=== PATIENT | female | born 1995 | race Caucasian/White ===

== ENCOUNTER 2018-03-06 06:18 | Emergency (ER) | payer OTHER ==
[2018-03-06 07:28] VITALS: BMI 24.5
--- NOTE | 2018-03-06 07:43 | PDOC ---
History of Present Illness - General History Source: Patient Exam Limitations: No Limitations - History of Present Illness Initial Comments: 03/06/18 07:53 The patient is a 22-year-old female, with no significant past medical history, who presents to the ED with one 1 day of diffuse abdominal pain, nausea, vomiting, and diarrhea. The patient states that she felt fine yesterday morning and developed her symptoms in the afternoon. She reports vomiting 2x yesterday and since then has been experiencing multiple episodes of loose, watery diarrhea. The patient has no appetite and is not able to hold down any solids or liquids. She denies any recent sick contacts. Patient is on control. The patient denies any fever or chills. She denies having any dysuria, frequency, urgency, or hesitancy. She denies any chest pain or shortness of breath. Allergies: NKA PCP: Dr. Starr Spain <Candi Kennedy - Last Filed: 03/06/18 16:51> <Kary Tidwell - Last Filed: 03/07/18 09:08> - General Chief Complaint: Pain Stated Complaint: abdominal pain Time Seen by Provider: 03/06/18 07:37 Past History <Candi Kennedy - Last Filed: 03/06/18 16:51> - Past Medical History COPD: No - Suicide/Smoking/Psychosocial Hx Smoking History: Never smoked Hx Alcohol Use: No Drug/Substance Use Hx: No <Kary Tidwell - Last Filed: 03/07/18 09:08> - Past Medical History Allergies/Adverse Reactions: Allergies Allergy/AdvReac Type Severity Reaction Status Date / Time No Known Allergies Allergy Verified 03/06/18 07:28 Home Medications: Ambulatory Orders Ondansetron [Zofran -] 4 mg PO TID PRN #21 tablet 03/06/18 Review of Systems - Review of Systems Able to Perform ROS?: Yes Comments:: 03/06/18 07:53 GENERAL/CONSTITUTIONAL: (+)loss of appetite. No fever or chills. No weakness. HEAD, EYES, EARS, NOSE AND THROAT: No change in vision. No ear pain or discharge. No sore throat. CARDIOVASCULAR: No chest pain or shortness of breath. RESPIRATORY: No cough, wheezing, or hemoptysis. GASTROINTESTINAL: (+)Abdominal pain, nausea, vomiting, diarrhea. No constipation. GENITOURINARY: No dysuria, frequency, or change in urination. MUSCULOSKELETAL: No joint or muscle swelling or pain. No neck or back pain. SKIN: No rash NEUROLOGIC: No headache, vertigo, loss of consciousness, or change in strength/ sensation. ENDOCRINE: No increased thirst. No abnormal weight change. HEMATOLOGIC/LYMPHATIC: No anemia, easy bleeding, or history of blood clots. ALLERGIC/IMMUNOLOGIC: No hives or skin allergy. <Candi Kennedy - Last Filed: 03/06/18 16:51> *Physical Exam - Vital Signs Last Vital Signs Temp Pulse Resp BP Pulse Ox 99.0 F 116 H 18 113/62 97 03/06/18 06:25 03/06/18 06:25 03/06/18 06:25 03/06/18 06:25 03/06/18 06:25 <Candi Kennedy - Last Filed: 03/06/18 16:51> - Vital Signs Last Vital Signs Temp Pulse Resp BP Pulse Ox 99.0 F 116 H 18 113/62 97 03/06/18 06:25 03/06/18 06:25 03/06/18 06:25 03/06/18 06:25 03/06/18 06:25 - Physical Exam Comments: GENERAL: Awake, alert, and fully oriented, in no acute distress HEAD: No signs of trauma EYES: PERRLA, EOMI, sclera anicteric, conjunctiva clear ENT: Auricles normal inspection, hearing grossly normal, nares patent, oropharynx clear without exudates. Dry mucosa NECK: Normal ROM, supple, no lymphadenopathy, JVD, or masses LUNGS: Breath sounds equal, clear to auscultation bilaterally. No wheezes, and no crackles HEART: Tachycardic with regular rhythm, normal S1 and S2, no murmurs, rubs or gallops ABDOMEN: Soft, diffuse mild tenderness, hyperactive bowel sounds. No guarding, no rebound. No masses EXTREMITIES: Normal range of motion, no edema. No clubbing or cyanosis. No cords, erythema, or tenderness NEUROLOGICAL: Cranial nerves II through XII grossly intact. Normal speech, normal gait SKIN: Warm, Dry, normal turgor, no rashes or lesions noted. <Kary Tidwell - Last Filed: 03/07/18 09:08> Moderate Sedation - Procedure Monitoring Vital Signs: Vital Signs Temp Pulse Resp BP Pulse Ox 99.0 F 116 H 18 113/62 97 03/06/18 06:25 03/06/18 06:25 03/06/18 06:25 03/06/18 06:25 03/06/18 06:25 <Candi Kennedy - Last Filed: 03/06/18 16:51> - Procedure Monitoring Vital Signs: Vital Signs Temp Pulse Resp BP Pulse Ox 99.0 F 116 H 18 113/62 97 03/06/18 06:25 03/06/18 06:25 03/06/18 06:25 03/06/18 06:25 03/06/18 06:25 <Kary Tidwell - Last Filed: 03/07/18 09:08> ED Treatment Course - LABORATORY CBC & Chemistry Diagram: 03/06/18 08:12 03/06/18 08:12 <Candi Kennedy - Last Filed: 03/06/18 16:51> - LABORATORY CBC & Chemistry Diagram: 03/06/18 08:12 03/06/18 08:12 <Kary Tidwell - Last Filed: 03/07/18 09:08> Medical Decision Making - Medical Decision Making 03/06/18 08:57 Pt reassessed. Abd exam remains benign. She reports some improvement in her symptoms. Awaiting remainder of labs. Will cont to monitor. 03/06/18 10:51 UA has resulted, no signs of infection. Patient reports improvement in symptoms. Counseled her to return to the ED if symptoms persist beyond 48 hours , or if she has fever, worsening abd pain, or any other concerning symptoms. <Kary Tidwell - Last Filed: 03/07/18 09:08> *DC/Admit/Observation/Transfer - Attestations Scribe Attestion: 03/06/18 07:54 Documentation prepared by Candi Kennedy, acting as medical laboratory manager for Kary Tidwell MD. <Candi Kennedy - Last Filed: 03/06/18 16:51> - Discharge Dispostion Decision to Admit order: No <Kary Tidwell - Last Filed: 03/07/18 09:08> Diagnosis at time of Disposition: Vomiting and diarrhea - Discharge Dispostion Disposition: HOME Condition at time of disposition: Improved - Prescriptions Prescriptions: Ondansetron [Zofran -] 4 mg PO TID PRN #21 tablet PRN Reason: Nausea And/Or Vomiting - Referrals Referrals: Starr Spain MD [Primary Care Provider] - - Patient Instructions Printed Discharge Instructions: DI for Diarrhea and Traveler's Diarrhea -- Adult, DI for Vomiting -- Adult - Post Discharge Activity
[2018-03-06] MEDS ORDERED: SODIUM CHLORIDE 2,000 ML IV STA (07:46)
[2018-03-06] MEDS ORDERED: FAMOTIDINE 20 MG/50 ML IVPB 20 MG/50 ML MG IVPB ONE ×2 (07:46→09:04)
[2018-03-06] MEDS ORDERED: ONDANSETRON 4 MG/2 ML VIAL IVPUSH ONE (07:46)
[2018-03-06] MEDS ORDERED: ONDANSETRON 4 MG/2 ML VIAL ONE (07:49)
[2018-03-06 08:41] LABS: BASO % 0.2 % (0-2.0); EOS % 0.2 % (0-4.5); HEMATOCRIT 40.4 % (32.4-45.2); HEMOGLOBIN 13.9 GM/dL (10.7-15.3); MCH 30.3 pg (25.7-33.7); MCHC 34.5 g/dl (32.0-36.0); MEAN PLT VOLUME 8.6 fl (7.5-11.1); MONO % 3.5 % (3.8-10.2); NEUT % 92.1 % (42.8-82.8); PLATELET COUNT 220 K/MM3 (134-434); RBC 4.59 M/mm3 (3.60-5.2); RDW 12.2 % (11.6-15.6); WHITE BLOOD COUNT 6.9 K/mm3 (4.0-10.0)
[2018-03-06 08:54] LABS: URINE APPEARANCE SLCLOUDY; URINE BILIRUBIN NEGATIVE (<2.0 mg/dL); URINE COLOR YELLOW; URINE GLUCOSE (UA) NEGATIVE (NEGATIVE); URINE KETONE 1+ (NEGATIVE); URINE LEUK ESTERASE NEGATIVE (NEGATIVE); URINE NITRITE NEGATIVE (NEGATIVE); URINE PROTEIN NEGATIVE (NEGATIVE); URINE UROBILINOGEN NEGATIVE mg/dL (0.2-1.0)
[2018-03-06 09:06] LABS: ALBUMIN 3.5 g/dl (3.4-5.0); ANION GAP 9 (8-16); BLOOD UREA NITROGEN 14 mg/dL (7-18); CALCIUM 8.2 mg/dL (8.5-10.1); CHLORIDE 105 mmol/L (98-107); CO2 24 mmol/L (21-32); CREATININE 0.7 mg/dL (0.55-1.02); GLUCOSE,RANDOM 107 mg/dL (74-106); LIPASE 133 U/L (73-393); POTASSIUM 3.6 mmol/L (3.5-5.1); SGOT/AST 17 U/L (15-37); SGPT/ALT 15 U/L (12-78); SODIUM 138 mmol/L (136-145); TOT PROT 6.8 g/dl (6.4-8.2)
[2018-03-06 09:12] LABS: ALK PHOS 59 U/L (45-117); BILIRUBIN,TOTAL 1.5 mg/dL (0.2-1.0)
[2018-03-06 09:29] LABS: EPI CELLS RARE /HPF (FEW); URINE BACTERIA RARE /hpf (NONE SEEN); URINE MUCUS RARE
[2018-03-06 10:55] VITALS: BP 118/77; PULSE 71; TEMP 98.1
== END 2018-03-06 10:55 | disposition home or self-care (01) ==
LOC: JER 06:18
PROC: 3E033GC Introduction of Other Therapeutic Substance into Peripheral Vein, Percutaneous Approach (ICD-10-PCS; principal; 2018-03-06)
PROC: 3E0337Z Introduction of Electrolytic and Water Balance Substance into Peripheral Vein, Percutaneous Approach (ICD-10-PCS; 2018-03-06)
DX: R11.10 Vomiting, unspecified (principal); R19.7 Diarrhea, unspecified
CPT/HCPCS: 36415; 80053; 81003; 81015; 83690; 84703; 85025; 99283-25; J7030